=== PATIENT | female | born 1985 | race Caucasian/White ===

== ENCOUNTER 2017-11-21 12:31 | Emergency (ER) | payer OTHER ==
[2017-11-21 13:18] VITALS: BMI 29.2
[2017-11-21 15:07] LABS: SQUAMOUS EPITHIAL < 1 /hpf (0-5); URINE BACTERIA RARE (<OCC); URINE BILIRUBIN NEGATIVE (NEGATIVE); URINE BLOOD NEGATIVE (NEGATIVE); URINE CLARITY CLEAR (Clear); URINE COLOR STRAW (YELLOW); URINE GLUCOSE (UA) NEG (Normal); URINE LEUKOCYTE ESTERASE NEG Leu/uL (Negative); URINE PROTEIN NEGATIVE (NEGATIVE); URINE UROBILINOGEN 0.2-1.0 mg/dL (0.2-1.0)
--- NOTE | 2017-11-21 15:38 | OBHP ---
Datetime: 11/21/2017 13:00 IP Adm Impression: , intrauterine ; No Active Labor; Intact Membranes IP Admit Plan: Discharge home Admit Comment, IP Provider: 2yo IUP at 30w came after noticing blood after wiping/urinating. H appened at 6:30am. No CTX; no SROM; +FM. She has no had VB since PNC: CP Dr Saha - Rh neg : given Rhogam PMH: denies PSH: denies NKA PSoH denies smoking ETOH drugs POBGYNH: G1; HPV+ PFH: denies A; IUP at 30w no evid of VB/PTL PLAN: will check UA...given script for cephalexin 500mg po q8h for 7days...will call patient with results; labor instructions Abdomen - PN: Normal Back - PN: Normal Lungs - PN: Normal Heart - PN: Normal Neurologic - PN: Normal HEENT - PN: Normal General - PN: Normal FHR - Baseline A Provider: 140 Membranes, Provider: Intact Comments, ACOG Physical Exam: SSE: no blood noted; cervix closde Pool Provider: Negative IP Hx Assessment: The History has been Reviewed and is Current EGA AdmitDate IP: 30.1 IP Chief Complaint: Vaginal bleeding NICHD Variability Prov Fetus A: Moderate 6-25bpm NICHD Accel Fetus A IP Provider: 15X15 FHR Category Provider Fetus A: Category I NICHD Decel Fetus A IP Provider: None Dilatation, Provider: 0
--- NOTE | 2017-11-21 15:40 | OBDCSUM ---
Datetime: 11/21/2017 13:26 Discharged to, Provider: Home Follow up at, Provider: Dr Saha Disch Instr Activity: Normal activity Disch Instr Diet: Regular Discharge Time: 11/21/2017 13:26 Follow up in weeks, Provider: Dec 2017 Disch Referrals: None Disch Activity Restrictions: No sexual activity; Nothing in vagina - [place], tampons, douche Discharge Comment, Provider: Add called pt...UA neg / Cnacelled urine culture; she feels fine
[2017-11-21 18:40] VITALS: BP 117/74; PULSE 88
== END 2017-11-21 14:40 | disposition home or self-care (01) ==
LOC: H.EROB2 12:31
DX: O26.853 Spotting complicating pregnancy, third trimester (principal); O47.03 False labor before 37 completed weeks of gestation, third trimester; Z3A.30 30 weeks gestation of pregnancy

== ENCOUNTER 2018-01-21 23:27 | Emergency (ER) | payer OTHER ==
--- NOTE | 2018-01-22 00:27 | OBHP ---
Datetime: 01/22/2018 00:22 IP Adm Impression: Term, intrauterine ; No Active Labor; Intact Membranes IP Admit Plan: Observation/Evaluation; Discharge home Admit Comment, IP Provider: 33-year-old at 39 weeks gestational age presents to OB ED complain ing of leakage of fluids. Patient reports noticing fluid at 10 PM. Possible leakage since then. Patie nt denies any contractions or vaginal bleeding. Patient reports good movement. Past medical history denies Past surgical history denies Medications vitamins No known drug allergies Medical history Social history denies tobacco, drugs, alcohol Assessment: 33-year-old at 39 weeks gestational age. No evidence of ruptured membranes, heart trac ing category 1, no evidence of labor. Plan: Patient discharged home with labor precautions Patient will follow up in office this week 30 scheduled Discussed plan with patient all patient questions answered. Pelvic Type - PN: Adequate Extremities - PN: Normal Abdomen - PN: Normal Back - PN: Normal Breast - PN: Normal Lungs - PN: Normal Heart - PN: Normal Thyroid - PN: Normal Neurologic - PN: Normal HEENT - PN: Normal General - PN: Normal FHR - Baseline A Provider: 120s-130s Contraction Comments Provider: none Comments, ACOG Physical Exam: Sterile speculum exam: Cervix long, closed, posterior No fluid, blood, discharge No fluid with Valsalva Bedside ultrasound: Cephalic PEPE 11-12 IP Hx Assessment: The History has been Reviewed and is Current EGA AdmitDate IP: 39.0 Vital Signs Provider: Reviewed; Within Normal Limits IP Chief Complaint: Suspected ruptured membranes NICHD Variability Prov Fetus A: Moderate 6-25bpm NICHD Accel Fetus A IP Provider: 15X15 FHR Category Provider Fetus A: Category I NICHD Decel Fetus A IP Provider: None Dilatation, Provider: 0 Effacement, Provider: 0 Station, Provider: -4 Genitourinary Exam: Normal DTRs - PN: Normal
[2018-01-22 04:58] VITALS: BP 126/80; PULSE 80; TEMP 98.2
== END 2018-01-22 00:45 | disposition home or self-care (01) ==
LOC: H.EROB2 23:27
DX: O34.63 Maternal care for abnormality of vagina, third trimester (principal); N89.8 Other specified noninflammatory disorders of vagina; Z3A.39 39 weeks gestation of pregnancy; O47.1 False labor at or after 37 completed weeks of gestation

== ENCOUNTER 2018-01-24 14:13 | Inpatient (IN) | payer OTHER ==
[2018-01-24 15:51] VITALS: BMI 26.5
[2018-01-24] MEDS ORDERED: Lactated Ringer's 1,000 ML IV ONE (16:27)
[2018-01-24] MEDS ORDERED: Oxytocin 30 UNIT 30 UNITS/500 ML BAG IV ONE ×2 (16:31→18:28)
[2018-01-24] MEDS ORDERED: OXYTOCIN/0.9 % NS 20 UNIT/1,000 ML BAG IV SCH (16:45)
[2018-01-24 17:10] LABS: EOS % 0.3 % (0.0-4.0); HEMOGLOBIN 12.5 g/dL (12.0-16.0); LYMPH % 8.1 % (20.0-40.0); MEAN CELL VOLUME 92.7 fl (81.0-99.0); MEAN CORPUSCULAR HEMOGLOBIN 30.9 pg (27.0-31.0); MEAN CORPUSCULAR HGB CONC 33.4 g/dL (33.0-37.0); MEAN PLATELET VOLUME 9.2 fl (7.2-11.7); MONO # 0.8 K/uL (0.0-0.8); MONO % 6.4 % (0.0-10.0); NEUT # 10.4 K/uL (1.8-7.0); NEUT % 85.2 % (50.0-75.0); PLATELET COUNT 207 K/uL (130-400); RBC 4.03 Mil/uL (3.80-5.20); RED CELL DISTRIBUTION WIDTH 13.6 % (11.5-14.5); WHITE BLOOD COUNT 12.3 K/uL (4.8-10.8)
[2018-01-24 19:32] LABS: BANDS 1 % (0-2); LYMPHOCYTE 11 % (20-50); MONOCYTE 6 % (0-10); NEUTROPHIL 82 % (42-75); PLATELET ESTIMATE NORMAL (NORMAL); TOTAL CELLS COUNTED 100
[2018-01-24 19:33] LABS: ANISOCYTOSIS SLIGHT; HYPOCHROMIC SLIGHT
--- NOTE | 2018-01-24 20:08 | OBADHP ---
Datetime: 01/24/2018 15:39 Admit Comment, IP Provider: Pt is a 32 yo F IUP @ 39.2wk YUE is 01/29/18 based on LMP of 04/13 04/30 and 10wk U/S 07/10/17. Pt here for SROM at 7am she felt a gush of fluid, she is also having contr actions that started at 3 am, O16enel earlier, now Q6mins. She had an apt with Dr. Saha today in the o ffice, he told her he was 3cm dilated and to come to the hospital to be admitted. Pt denies vaginal bleeding, fevers, dizziness, headache, blurry vision, chest pain, SOB, nausea, vomiting, diarrhea, co nstipation, dysuria; Reports good movements. PNP: Dr. Saha PNL: All labs unremarkable, O+ , Received TDAP 11/16 OB HX: No complications Ply Cutter Hx: Hx of Abnormal pap, HPV+ 07/28 PMHx: None Meds: Prenatals Allergies: NKDA Surg Hx: Denies Social Hx: Denies smoking, EtOh, drugs Family Hx: Father- HTN PHYSICAL EXAM General: Lying in bed, NAD HEENT: NCAT, EOMI Heart: no murmurs, regular rate and rhythm, S1, S2 normal. Lungs: clear to auscultation bilaterally, no wheezing, rales or rhonchi Abdomen: Gravid, soft non tender to palpation, + BS LE: no edema Heart Rate: 150, moderate 6-25bpm, category 1, 15x15 A/P: Pt is a 32 yo F IUP @ 39.2wks with SROM, Contractions -Admit to L _ D -Initiate Labor protocol -3cm dilated, bedside U/S to check for Rupture -Monitor heart tracings -IVF's, Pitocin Case reviewed and discussed with Attending aJnet Arce M.D. PGY-1 Patient was seen with the resident I agree with the note Pelvic Type - PN: Adequate (Annotations: Data stored by CPN on behalf of user) Extremities - PN: Normal Abdomen - PN: Normal Back - PN: Not Done Breast - PN: Not Done Lungs - PN: Normal Heart - PN: Normal Thyroid - PN: Not Done Neurologic - PN: Not Done HEENT - PN: Normal General - PN: Normal FHR - Baseline A Provider: 150 IP Hx Assessment: The History has been Reviewed and is Current Vital Signs Provider: Reviewed; Within Normal Limits IP Chief Complaint: Uterine contractions; Suspected ruptured membranes NICHD Variability Prov Fetus A: Moderate 6-25bpm NICHD Accel Fetus A IP Provider: 15X15 FHR Category Provider Fetus A: Category I NICHD Decel Fetus A IP Provider: None Dilatation, Provider: 3 Genitourinary Exam: Normal DTRs - PN: Not Done EGA AdmitDate IP: 39.2 IP Adm Impression: Term, intrauterine ; Ruptured Membranes IP Admit Plan: Admit to unit; Initiate labor protocol Datetime: 01/22/2018 00:22 Contraction Comments Provider: none Comments, ACOG Physical Exam: Sterile speculum exam: Cervix long, closed, posterior No fluid, blood, discharge No fluid with Valsalva Bedside ultrasound: Cephalic PEPE 11-12 Effacement, Provider: 0 Station, Provider: -4 Datetime: 11/21/2017 13:00 Membranes, Provider: Intact Pool Provider: Negative
[2018-01-25] MEDS: Lactated Ringer's 1,000 ML IV SCH ×3 (03:00→08:45)
[2018-01-25 03:20] VITALS: TEMP 97.6
[2018-01-25] MEDS ORDERED: Lidocaine 1% Inj (20ml) ONE (06:38)
--- NOTE | 2018-01-25 09:35 | OBPN ---
Datetime: 01/25/2018 09:32 IP Procedures: Sterile Vag Exam IP Progress Plan: Continue present management FHR - Baseline A Provider: 120s IP Fetus A Comments: Moderate baseline variability, variable decelerations with good recovery IP Progress Note Comment: Patient without complaints. heart tracing with moderate baseline variability, variable decelerations with good recovery. Plan to continue current management Discussed plan with patient and all patient questions answered. Vital Signs Provider: Reviewed; Within Normal Limits NICHD Accel Fetus A IP Provider: 15X15 FHR Category Provider Fetus A: Category II NICHD Variability Prov Fetus A: Moderate 6-25bpm Dilatation, Provider: 9 Effacement, Provider: 100 Station, Provider: 0 NICHD Decel Fetus A IP Provider: Variable Datetime: 01/25/2018 02:00 IP Progress Impression: Normal progression of labor IP Informed Consent Obtain: Vaginal Delivery Membranes, Provider: Intact Gestation - Est Wks by US: 39.3 Presentation-Admit: Vertex Datetime: 01/24/2018 21:49 Amniotic Fluid Color, Provider: Clear Datetime: 01/22/2018 00:22 Contraction Comments Provider: none Datetime: 11/21/2017 13:00 Pool Provider: Negative
[2018-01-25] MEDS ORDERED: Oxycodone/Acetaminophen 5/325 mg Tab PO PRN (16:21)
[2018-01-25] MEDS ORDERED: Benzocaine/Menthol SPRAY TOP PRN (16:21)
[2018-01-25] MEDS ORDERED: Oxytocin 30 UNIT 30 UNITS/500 ML BAG IV ONE (16:21)
[2018-01-25] MEDS ORDERED: OXYTOCIN/0.9 % NS 20 UNIT/1,000 ML BAG IV ONE (16:21)
[2018-01-26 07:39] LABS: BASO % 0.2 % (0.0-2.0); EOS # 0.1 K/uL (0.0-0.7); EOS % 0.4 % (0.0-4.0); HEMOGLOBIN 10.5 g/dL (12.0-16.0); LYMPH # 1.3 K/uL (1.0-4.3); LYMPH % 9.2 % (20.0-40.0); MEAN CELL VOLUME 93.8 fl (81.0-99.0); MEAN CORPUSCULAR HEMOGLOBIN 31.3 pg (27.0-31.0); MEAN CORPUSCULAR HGB CONC 33.3 g/dL (33.0-37.0); MEAN PLATELET VOLUME 9.3 fl (7.2-11.7); MONO # 1.2 K/uL (0.0-0.8); MONO % 8.4 % (0.0-10.0); NEUT # 11.6 K/uL (1.8-7.0); NEUT % 81.8 % (50.0-75.0); NRBC % 0.1 % (0.0-0.0); RBC 3.37 Mil/uL (3.80-5.20); RED CELL DISTRIBUTION WIDTH 13.8 % (11.5-14.5); WHITE BLOOD COUNT 14.1 K/uL (4.8-10.8)
[2018-01-26] MEDS: Lactated Ringer's 1,000 ML IV SCH (07:53)
--- NOTE | 2018-01-26 08:33 | OBDS ---
DELIVERY PERSONNEL Delivery Doctor: Leonardo Bermeo MD Scrub Nurse: Saira Unger OBT [employer] Fishing Tool Operator: Sanjana Guy RN MATERNAL INFORMATION Delivery Anesthesia: Local Medications in Delivery: Pitocin 30 units Estimated Blood Loss (ml): 300 Placenta Cultured: No Maternal Complications: None Provider Comments: Normal spontaneous vaginal delivery. Patient delivered viable infant female with Apgars of 8 and 9 at 5 minutes respectively. Due to te mporary shoulder dystocia, patient placed in Billie position, suprapubic pressure applied, manual rotation of the posterior shoulder and then delivered spontaneously. loose nuchal cord 1 red uced. Placenta delivered spontaneously. Cord blood and cord gases collected. Laceration repaired, as above. Patient tolerated delivery and repair well. Estimated blood loss 300 mL. LABOR SUMMARY EDC: 01/29/2018 00:00 No. Babies in Womb: 1 Attempted: No Labor Anesthesia: None LABOR INFORMATION Reason for Induction: Not Applicable Onset of Labor: 01/24/2018 12:30 Complete Dilatation: 01/25/2018 12:30 Oxytocin: Augmentation Group B Beta Strep: Negative Steroids Given: None Reason Steroids Not Administered: Not Applicable MEMBRANES Membranes Rupture Method: Spontaneous Rupture of Membranes: 01/24/2018 09:20 Length of Rupture (hrs): 29.17 Amniotic Fluid Color: Clear Amniotic Fluid Amount: Moderate Amniotic Fluid Odor: Normal STAGES OF LABOR Stage 1 hrs: 24 Stage 1 min: 0 Stage 2 hrs: 2 Stage 2 min: 0 Stage 3 hrs: 0 Stage 3 min: 10 Total Time in Labor hrs: 26 Total Time in Labor min: 10 VAGINAL DELIVERY Episiotomy: None Laceration Extension: Third Degree Laceration Type: Perineal Laceration Repair: Yes Laceration Repair Note: Third degree midline perineal laceration. Laceration extended slightly into the anal sphincter capsule and muscle. Area infiltrated with 1% lidocaine. Anal sphincter muscle and capsule reapproximated with interrupted sutures of 0 Vicryl. The remainder of laceration repaired wit h 2. 0 repeat without complication. Repair well. Initial Vag Sponge Count: 20 Final Vag Sponge Count: 20 Initial Vag Sharps Count: 6 Final Vag Sharps Count: 6 Sponge Count Correct: Yes Sharps Count Correct: Yes BABY A INFORMATION Delivery Date/Time: 01/25/2018 14:30 Method of Delivery: Vaginal Born in Route : No : N/A Forceps: N/A Vacuum Extraction: N/A Shoulder Dystocia : No SHOULDER DYSTOCIA BABY A Delivery of Head: 01/25/2018 14:27 Delivery Date/Time: 01/25/2018 14:30 Time Head to Delivery : 3.0 1st Intervention to Resolve: McRobert's Maneuver 2nd Intervention to Resolve: Suprapubic Pressure 3rd Intervention to Resolve: Gentle Attempt at Traction, Assisted by Maternal Expulsive Efforts Verify NO Fundal Pressure: No Fundal Pressure Applied Arm Under Symphisis at Del: Right PRESENTATION/POSITION BABY A Presentation: Cephalic Cephalic Presentation: Vertex Breech Presentation: N/A PLACENTA INFORMATION BABY A Placenta Delivery Time : 01/25/2018 14:40 Placenta Method of Delivery: Spontaneous Placenta Status: Delivered SCORES BABY A Heart Rate 1 min: >100 bpm Resp Effort 1 min: Good Cry Reflex Irritability 1 min: Cough or Sneeze or Pulls Away Muscle Tone 1 min: Some Flexion of Extremities Color 1 min: Body [place], Extremities Blue Resuscitation Effort 1 min: Tactile Stimulation SCORE 1 MIN: 8 Heart Rate 5 min: >100 bpm Resp Effort 5 min: Good Cry Reflex Irritability 5 min: Cough or Sneeze or Pulls Away Muscle Tone 5 min: Active Motion Color 5 min: Body [place], Extremities Blue Resuscitation Effort 5 min: Tactile Stimulation SCORE 5 MIN: 9 INFANT INFORMATION BABY A Gestational Age at Delivery: 39.0 Gestational Status: Term Infant Outcome : Liveborn Condition : Stable Sex: Female IDENTIFICATION/MEDS BABY A ID Band Number: [id number] ID Band Location: Left Leg; Left Arm WEIGHT/LENGTH BABY A Birthweight (gms): 3540 Weight (lb): 7 Weight (oz): 13 CORD INFORMATION BABY A No. Cord Vessels: 3 Nuchal Cord : Around Neck x1, Loose Cord Blood Taken: N/A Infant Suction: Mouth ASSESSMENT BABY A Infant Complications: Multiple Variable Decels Physical Findings at Delivery: Caput Succedaneum; Molding of the Head; Bruising Respirations: Appears Normal Assistant Buyer/ALS Called : No Care By: Dr. Aragon, SadercisoCyndi, WGrimRN Transferred To: Remains with Mother
[2018-01-26] MEDS ORDERED: Multivitamin With Minerals Tab PO SCH (09:00)
--- NOTE | 2018-01-26 15:09 | OBPPN ---
Datetime: 01/26/2018 15:07 PP Pain Prov: Within normal limits PP Nausea Prov: Denies PP Flatus Prov: Yes PP Breasts Prov: Normal PP Heart Prov: Normal PP Lungs Prov: Normal PP Abdomen/Uterus Prov: Normal PP Lochia Prov: Normal PP Vulva/Perineum Prov: Normal PP CVA Tenderness Prov: Normal PP Extremities Prov: Normal PP Comments Phys Exam Prov: Fundus under umbilicus PP Impression Prov: Normal progression PP Plan Prov: Continue present management PP Progress Note Prov: Patient denies CP, no SOB, no N/V, tolerating PO diet, ambulating/voiding wel l, mild lochia, abdominal pain tolerable with meds A/P PPD #1 1. Continue current orders 2. Encourage ambulation/ 3. Motrin prn pain IP PP Procedures: None Vital Signs Provider PP: Reviewed; Within Normal Limits
--- NOTE | 2018-01-27 09:51 | OBDCSUM ---
Datetime: 01/22/2018 00:35 Follow up at, Provider: [facility] Discharge Instructions, Provider: Routine instructions given Discharge Diagnosis, Provider: Term Delivered Discharge Time: 01/27/2018 00:00 Follow up in weeks, Provider: 4-6 weeks. Contraception discussed, Prov: Yes Disch Activity Restrictions: No sexual activity; Nothing in vagina - [place], tampons, douche Discharge Comment, Provider: Patient cleared for discharge Contraception after Delivery: Undecided
--- NOTE | 2018-01-27 09:51 | OBPPN ---
Datetime: 01/27/2018 09:49 PP Pain Prov: Within normal limits PP Nausea Prov: Denies PP Flatus Prov: Yes PP Breasts Prov: Not Done PP Heart Prov: Normal PP Lungs Prov: Normal PP Abdomen/Uterus Prov: Normal PP Lochia Prov: Not Done PP Vulva/Perineum Prov: Not Done PP CVA Tenderness Prov: Normal PP Extremities Prov: Normal PP Progress Prov: Normal PP Impression Prov: Normal progression PP Plan Prov: Discharge PP Progress Note Prov: A should doing well, ambulating voiding without difficulty reports minimal lo terese Vital signs stable afebrile Uterus firm below the umbilicus Extremities no Homans day #2 Patient cleared for discharge Vital Signs Provider PP: Reviewed
[2018-01-27 18:51] VITALS: BP 115/69; PULSE 90; RESP 20; O2SAT 100
== END 2018-01-27 14:10 | disposition home or self-care (01) | DRG 768 ==
LOC: H.EROB2 14:13 → H.EROB 14:26 → H.EROB2 16:27 → H.L&D 16:27 → H.OB/GYN 01-25 17:47
PROVIDERS: ADMIT Obstetrics & Gynecology Gynecology; ATTEND Obstetrics & Gynecology Gynecology
PROC: 4A1HXCZ Monitoring of Products of Conception, Cardiac Rate, External Approach (ICD-10-PCS; 2018-01-24)
PROC: 0DQR0ZZ Repair Anal Sphincter, Open Approach (ICD-10-PCS; principal; 2018-01-25)
PROC: 10E0XZZ Delivery of Products of Conception, External Approach (ICD-10-PCS; 2018-01-25)
DX: O76 Abnormality in fetal heart rate and rhythm complicating labor and delivery (principal); Z37.0 Single live birth; O70.20 Third degree perineal laceration during delivery, unspecified; O69.81X0 Labor and delivery complicated by cord around neck, without compression, not applicable or unspecified; O66.0 Obstructed labor due to shoulder dystocia; Z3A.39 39 weeks gestation of pregnancy